=== PATIENT | female | born 1955 | race Caucasian/White ===

== ENCOUNTER → 2016-08-31 | Outpatient (CLI) | payer OTHER ==
[2016-08-31 14:12] LABS: BASO % 0.4 %; BASO ABS # 0.02 K/uL (0-0.2); COMPLETE YES; EOS % 2.6 %; IG% 0.2 %; LYMPH % 32.6 %; LYMPH ABS # 1.78 K/uL (1.2-3.4); MEAN CELL VOLUME 96.2 fL (80-100); MEAN CORPUSCULAR HEMOGLOBIN 32.1 pg (25-34); MEAN CORPUSCULAR HGB CONC 33.3 g/dl (32-36); MEAN PLATELET VOLUME 9.8 fL (7.4-10.4); MONO % 8.1 %; NEUT % 56.1 %; PLATELET COUNT 290 K/uL (130-400); RED BLOOD COUNT 4.68 M/uL (4.2-5.4); WHITE BLOOD COUNT 5.46 K/uL (4.8-10.8)
[2016-08-31 16:34] LABS: ALKALINE PHOSPHATASE 70 U/L (45-117); ALT/SGPT 33 U/L (12-78); AST/SGOT 19 U/L (15-37); BLOOD UREA NITROGEN 17 mg/dl (7-18); BUN/CREATININE RATIO 18.1 (10-20); CALCIUM 9.4 mg/dl (8.5-10.1); CARBON DIOXIDE 29 mmol/L (21-32); CHLORIDE 108 mmol/L (98-107); CHOLESTEROL 201 mg/dl (0-200); CHOLESTEROL/HDL RATIO 3.9; CREATININE 0.93 mg/dl (0.60-1.20); GLUCOSE 85 mg/dl (70-99); HDL CHOLESTEROL 51 mg/dl; LDL CHOLESTEROL CALCULATED 115 mg/dl; POTASSIUM 4.2 mmol/L (3.5-5.1); SODIUM 142 mmol/L (136-145); TRIGLYCERIDES 176 mg/dl (0-150); VERY LOW DENSITY LIPOPROT CALC 35 mg/dl
== END | disposition home or self-care (01) ==
LOC: C.LABSPEC 13:42
PROVIDERS: ATTEND Family Medicine
DX: E03.9 Hypothyroidism, unspecified (principal); E78.2 Mixed hyperlipidemia; J44.9 Chronic obstructive pulmonary disease, unspecified; F41.1 Generalized anxiety disorder

== ENCOUNTER → 2016-12-09 | Outpatient (CLI) | payer OTHER | END | disposition home or self-care (01) | LOC: C.LABSPEC 13:21 | PROVIDERS: ATTEND Family Medicine | DX: R31.9 Hematuria, unspecified (principal) ==

== ENCOUNTER → 2017-03-03 | Outpatient (CLI) | payer OTHER ==
[2017-03-03 13:59] LABS: BASO % 0.6 %; BASO ABS # 0.03 K/uL (0-0.2); COMPLETE YES; EOS % 2.8 %; HEMATOCRIT 39.5 % (37-47); IG% 0.2 %; LYMPH % 33.7 %; LYMPH ABS # 1.82 K/uL (1.2-3.4); MEAN CELL VOLUME 94.7 fL (80-100); MEAN CORPUSCULAR HEMOGLOBIN 32.4 pg (25-34); MEAN CORPUSCULAR HGB CONC 34.2 g/dl (32-36); MEAN PLATELET VOLUME 10.2 fL (7.4-10.4); MONO % 11.7 %; PLATELET COUNT 242 K/uL (130-400); RED BLOOD COUNT 4.17 M/uL (4.2-5.4)
[2017-03-03 14:14] LABS: ALT/SGPT 28 U/L (12-78); AST/SGOT 16 U/L (15-37); BLOOD UREA NITROGEN 23 mg/dl (7-18); BUN/CREATININE RATIO 24.9 (10-20); CARBON DIOXIDE 26 mmol/L (21-32); CHLORIDE 108 mmol/L (98-107); CREATININE 0.91 mg/dl (0.60-1.20); GLUCOSE 89 mg/dl (70-99); SODIUM 143 mmol/L (136-145)
[2017-03-03 14:21] LABS: ALB/GLOB RATIO 1.1 (0.9-2); ALKALINE PHOSPHATASE 65 U/L (45-117); CHOLESTEROL 170 mg/dl (0-200); CHOLESTEROL/HDL RATIO 3.2; HDL CHOLESTEROL 53 mg/dl; LDL CHOLESTEROL CALCULATED 93 mg/dl; TRIGLYCERIDES 122 mg/dl (0-150); VERY LOW DENSITY LIPOPROT CALC 24 mg/dl
== END | disposition home or self-care (01) ==
LOC: C.LABSPEC 12:54
PROVIDERS: ATTEND Family Medicine
DX: E03.9 Hypothyroidism, unspecified (principal); J44.9 Chronic obstructive pulmonary disease, unspecified; E78.2 Mixed hyperlipidemia